=== PATIENT | female | born 1990 | race Caucasian/White ===

== ENCOUNTER 2021-05-12 01:46 | Emergency (ER) | payer SELFPAY ==
[2021-05-12 01:52] VITALS: BP 100/73; PULSE 99; RESP 17; TEMP 37.1; O2SAT 100
[2021-05-12 03:44] VITALS: BP 91/62; PULSE 77; RESP 18; TEMP 36.6; O2SAT 100
[2021-05-12 03:58] VITALS: BP 115/89
--- NOTE | 2021-05-12 04:00 | ED.GENADULT ---
HPI - General Adult General Chief complaint: Skin/Abscess/Foreign Body Stated complaint: i think i have MRSA Time Seen by Provider: 05/12/21 03:51 Source: RN notes reviewed History of Present Illness HPI narrative: Patient presents to emergency department from home for skin lesions. Patient states she has concerns of MRSA here with her significant other with same wounds on his body patient has several wounds in different stages of healing in her left leg bilateral arms and face states that the wound is well at time have purulent drainage she denies any fevers or chills or any other symptoms Related Data Allergies Allergy/AdvReac Type Severity Reaction Status Date / Time No Known Allergies Allergy Verified 05/12/21 03:50 Review of Systems Review of Systems: Gen.: Denies fevers or chills Musculoskeletal: Denies any joint pain : Denies chance of Neuro: Denies numbness, tingling, weakness Skin: See HPI Endo: Denies DM PMFSH Past Medical History Medical History (Updated 05/12/21 @ 04:03 by Hamzah Melendez DO) Patient denies significant medical history Family History Family History (Updated 05/11/14 @ 07:13 by DOCTOR UNKNOWN) Mother Family history of multiple sclerosis Social History Social History (Updated 05/12/21 @ 04:02 by Hamzah Melendez DO) Smoking status: Current every day smoker Alcohol intake: current Substance use type: marijuana Gender identity (if verbalized by the patient): Female Exam Narrative: APPEARANCE: No acute distress, nontoxic, resting in bed Eyes: EOMI HEENT: Normocephalic, atraumatic, RESPIRATORY: No respiratory distress MUSCULOSKELETAl: Moves all extremities. No clubbing cyanosis or edema NEURO: Awake and alert. Following commands, speech normal, no focal deficits SKIN:: Warm, dry. Normal patient with several circular erythematous lesions on the left leg and bilateral upper extremities and chin in different stages of healing with crusted over lesions consistent with healing abscesses there is no areas of fluctuance Course Course Emergency Course: Discussed with patient results of workup and diagnosis. Discussed need for follow-up with primary care, proper use of medication, and reasons to return to the emergency department. Patient understands and agrees to current treatment plan Vital Signs Vital signs: Vital Signs Temperature 98.8 F 05/12/21 01:52 Pulse Rate 99 05/12/21 01:52 Respiratory Rate 17 05/12/21 01:52 Blood Pressure 100/73 05/12/21 01:52 Pulse Oximetry 100 05/12/21 01:52 Temperature 97.9 F 05/12/21 03:44 Pulse Rate 77 05/12/21 03:44 Respiratory Rate 18 05/12/21 03:44 Blood Pressure 115/89 05/12/21 03:58 Pulse Oximetry 100 05/12/21 03:44 Medical Decision Making Vital Signs Vital Signs: Vital Signs Temperature 98.8 F 05/12/21 01:52 Pulse Rate 99 05/12/21 01:52 Respiratory Rate 17 05/12/21 01:52 Blood Pressure 100/73 05/12/21 01:52 Pulse Oximetry 100 05/12/21 01:52 Temperature 97.9 F 05/12/21 03:44 Pulse Rate 77 05/12/21 03:44 Respiratory Rate 18 05/12/21 03:44 Blood Pressure 115/89 05/12/21 03:58 Pulse Oximetry 100 05/12/21 03:44 Discharge Plan Discharge Clinical Impression: Cellulitis Patient Disposition: Home, Self-Care Condition: Stable Instructions: Antibiotic Form, Abscess (ED) Additional Instructions: Return for worsening signs of infection fever or any other symptoms of concern Prescriptions: New sulfamethoxazole-trimethoprim [Bactrim DS] 800-160 mg tablet 1 tablet PO Q12H Qty: 20 RF: 0 Follow-up/Referrals: Rainer Gordon MD [Physician] - (Follow-up in 1-2 days for further on-call physician treatment and evaluation) PHYSICIAN,TYPE PHOTOGRAPHY SUPERVISOR [Primary Care Provider] - Time of Disposition: 04:04
== END 2021-05-12 04:27 | disposition home or self-care (01) ==
LOC: ANHED 04:13
PROVIDERS: Emergency Provider Emergency Medicine
DX: L03.90 Cellulitis, unspecified (principal); F17.200 Nicotine dependence, unspecified, uncomplicated
CPT/HCPCS: 99283; A9270

== ENCOUNTER 2025-01-08 03:25 | Emergency (ER) | payer BC, SELFPAY ==
--- NOTE | ~2025-01-08 | XR_ITS ---
EXAMINATION: XR chest 1V portable DATE: 01/08/2025 07:35 INDICATION: Fevers TECHNIQUE: frontal view of the chest was obtained. COMPARISON: None FINDINGS: The lungs are clear with no focal airspace opacities, pulmonary edema, pleural effusion or pneumothor ax. The cardiomediastinal silhouette is normal. Visualized bones and soft tissues are unremarkable. IMPRESSION: 1. No acute cardiopulmonary disease. Reviewed, dictated and finalized at location A.
--- OUTSIDE RECORDS SUMMARY | 2025-01-08 03:28 | XMS_ITS | Patient Health Record ---
Author Organization Count includes the [facility] Address [address] [place] [address] Care Team Providers Care Traffic Engineer Name Role Phone Marvin Maritn Primary Care Provider [phone] Allergies Allergen (clinical drug ingredient) Drug/Non Drug Allergy documented on EMR Reaction Allergy Type Onset Date Status Bee Sting anaphylaxis Allergy Active Reason For Referral No Information Medications Medication SIG (Take, Route, Frequency, Duration) Notes Start Date End Date Status Venlafaxine HCl ER 37.5 MG 1 capsule wit h food Orally Once a day for 30 days Active Suboxone 8-2 MG 1 film under the ton kael and allow to dissolve Sublingual Once a day 12/31/2022 Active busPIRone HCl 7.5 MG 1 tablet Orally Twi ce a day for 30 days 01/27/2023 Active Social History Tobacco Use: Social History Observation Description Date Details (start date - stop date) Unknown Sex Assigned At : Social History Observation Description Sex Assigned At Female Dont use, Tobacco Use/Smoking Question Answer Notes Are you a Uses tobacco in other forms Additional Findings: Tobacco User e-Cigarette Problems Problem Type SNOMED Code ICD Code Onset Dates Problem Status W/U Status Risk Notes Problem Tobacco user (220886365) Nicotine dependence, unspecified, uncomplicated (F17.200) Active confirmed Problem Generalized anxiety disorder (79499346) Generalized anxiety disorder (F41.1) Active confirmed Problem Major depression (176622383) Major depression (F32.9) Active confirmed Problem Opioid use disorder (0386377314) Opioid use disorder (F11.90) Active confirmed Plan Of Treatment No Information Insurance Providers Payer Name Payer Address Payer Phone Subscriber Number Group Number Insured Name Patient Relationship to Insured Coverage Start Date Coverage End Date MEDICAID [address] [place] [address] [id number] Candis Braden Self - patient is the insured [address] [address] [id number] Candis Braden Self - patient is the insured 1 MEDICAID [facility] [address] [place] [address] [id number] Candis Braden Self - patient is the insured [address] [address] [id number] Candis Braden Self - patient is the insured 1 Medical (General) History Medical History History ICD Code anxiety attention deficit hyperactivity disorder OUD Surgical History Surgery Date(Month/Year) Hospitalization History Reason Date(Month/Year)
[2025-01-08 03:34] VITALS: BP 108/72; PULSE 137; RESP 14; TEMP 36.3; O2SAT 100
--- NOTE | 2025-01-08 03:56 | PC.NURSE ---
Pt presents to ED c/o dysuria, and elevated temp. Pt endorses taking opiods and xanax, unknown what time. Pt appears impaired upon being roomed. Pt placed in a gown and cont. cardiac monitoring.
[2025-01-08 06:33] LABS: BEDSIDEPREGUCG Negative (Negative)
[2025-01-08] MEDS: SODIUM CHLORIDE 0.9% IV 3,000 ML 999 ML IV CONT (06:33)
[2025-01-08] MEDS: KETOROLAC 15 MG/ML VIAL (*BKC) IV PUSH (06:34)
[2025-01-08 06:47] LABS: Basophils Absolute Auto 0.1 K/mm3 (0.0-0.1); Basophils Percent Auto 0.4 % (0.2-1.2); Eosinophils Absolute Auto 0.1 K/mm3 (0-0.3); Eosinophils Percent Auto 0.6 % (0-4.4); Hematocrit 31.5 % (37.0-47.0); Hemoglobin 10.2 g/dL (12.0-15.0); Immature Granulocyte Absolute 0.05 K/mm3 (0.00-0.031); Immature Granulocyte Percent A 0.4 % (0-0.5); Lymphocytes Absolute Auto 1.55 K/mm3 (0.9-3.2); Lymphocytes Percent Auto 12.7 % (18.3-44.2); Mean Corpuscular HGB Conc 32.4 g/dl (32-36); Mean Corpuscular Hemoglobin 29.1 pg (26-34); Mean Corpuscular Volume 89.7 fl (80-100); Mean Platelet Volume 9.4 fl (7.4-10.4); Monocytes Absolute Auto 1.1 K/mm3 (0.1-0.6); Monocytes Percent Auto 9.2 % (2.6-8.5); Neutrophils Absolute Auto 9.4 K/mm3 (1.3-6.7); Neutrophils Percent Auto 76.7 % (45.5-73.1); Platelet Count Result 510 k/mm3 (150-375); Red Blood Count 3.51 M/mm3 (4.2-5.4); Red Cell Distribution Width 11.6 % (11.5-14.5); White Blood Count 12.2 K/mm3 (4.5-10.0)
[2025-01-08 06:54] LABS: Add Urine Microscopic? YES; Appearance Urine Cloudy (Clear); Bacteria Urine 4+ /hpf; Bilirubin Urine Negative (Negative); Blood Urine Trace (Negative); Color Urine Yellow (Yellow); Glucose Urine UA Negative (Negative); Ketones Urine Negative (Negative); Leukocyte Esterase Ur 2+ LEU/UL (Negative); Nitrate Urine Negative (Negative); Non Pathogenic Casts 0-2; Protein Urine Trace mg/dL (Negative); RBC Urine 0-2 /hpf (0-2); Specific Grav Ur 1.012 (1.001-1.035); Squamous Epithelial Cell Urine Occasional /hpf (Few); Urobilinogen Urine 0.2 mg/dL (<2.0); WBC Urine 21-50 /hpf (0-3); pH Urine 5.5 (5.0-9.0)
[2025-01-08 07:00] LABS: Lactic Acid Reflex 1.9 mmol/L (0.7-2.0)
[2025-01-08 07:01] LABS: Ethanol < 10 mg/dL (<10)
[2025-01-08 07:11] LABS: Amphetamine Screen Urine Positive (Negative); Barbiturate Screen Urine Negative (Negative); Benzodiazepines Screen Urine Positive (Negative); Cannabinoid Screen Urine Positive (Negative); Cocaine Screen Urine Positive (Negative); Methadone Screen Urine Negative (Negative); Opiate Screen Urine Negative (Negative); Phencyclidine Screen Urine Negative (Negative)
--- NOTE | 2025-01-08 07:16 | ED_ITS ---
HPI - General Adult General Chief complaint: Fever <Basilio Myers MD - Last Filed: 01/08/25 07:29> Stated complaint: fever, UTI symptoms, L flank pain <Basilio Myers MD - Last Filed: 01/08/25 07:29> Time Seen by Provider: 01/08/25 05:33 <Basilio Myers MD - Last Filed: 01/08/25 07:29> History of Present Illness HPI narrative: This is a 34-year-old female presenting with chief complaint of fever. Patient says that she had UTI symptoms 2 weeks ago. She completed a course of Keflex but then they quickly returned. Now she is having fevers, headaches body aches left-sided flank pain and pain on urination. She denies vaginal discharge or irritation or concerns for STDs. She denies chest pain difficulty breathing nausea vomiting diarrhea. <Basilio Myers MD - Last Filed: 01/08/25 07:29> Related Data Allergies/adverse reactions: Allergies Allergy/AdvReac Type Severity Reaction Status Date / Time No Known Allergies Allergy Verified 01/08/25 03:38 <Basilio Myers MD - Last Filed: 01/08/25 07:29> [facility] Past Medical History Medical History: Medical History Patient denies significant medical history <Basilio Myers MD - Last Filed: 01/08/25 07:29> Family History Family History: Family History (Updated 05/11/14 @ 07:13 by DOCTOR UNKNOWN) Mother Family history of multiple sclerosis <Basilio Myers MD - Last Filed: 01/08/25 07:29> Social History Social History: Social History (Updated 05/12/21 @ 04:02 by Hamzah Melendez, DO) Smoking status: Current every day smoker Alcohol intake: current Substance use type: marijuana Gender identity (if verbalized by the patient): Female <Basilio Myers MD - Last Filed: 01/08/25 07:29> Exam 2 Narrative: APPEARANCE: No apparent distress. Head: atraumatic. EYES: EOMI, NOSE: Atraumatic NECK: Trachea midline RESPIRATORY: No increased rate of breathing CTAB CARDIOVASCULAR: Mildly tachycardic, no peripheral edema ABDOMINAL: Non-distended, soft nontender no guarding rebound left-sided flank pain MUSCULOSKELETAl: No obvious deformities NEURO: Alert. Moving 4/4 extremities SKIN:: Warm, dry. Normal color PSYCHIATRIC: Normal affect <Basilio Myers MD - Last Filed: 01/08/25 07:29> Course Reevaluation(s) Reevaluation #1: At time of discharge patient's Trichomonas gonorrhea and chlamydia was pending along with a chest x-ray. Patient was negative for gonorrhea Trichomonas and chlamydia and chest x-ray showed no acute cardiopulmonary abnormality. Patient is being treated for urinary tract infection being discharged home on cefdinir. <Cody Strong MD - Last Filed: 01/08/25 11:13> Vital Signs Vital signs: Vital Signs Temperature 97.4 F L 01/08/25 03:34 Pulse Rate 137 H 01/08/25 03:34 Respiratory Rate 14 01/08/25 03:34 Blood Pressure 108/72 01/08/25 03:34 Pulse Oximetry 100 01/08/25 03:34 Oxygen Delivery Room Air 01/08/25 03:34 Temperature 97.7 F 01/08/25 10:30 Pulse Rate 70 01/08/25 10:30 Respiratory Rate 18 01/08/25 10:30 Blood Pressure 110/60 01/08/25 10:30 Pulse Oximetry 98 01/08/25 10:30 Oxygen Delivery Room Air 01/08/25 03:34 <Basilio Myers MD - Last Filed: 01/08/25 07:29> Vital Signs Temperature 97.4 F L 01/08/25 03:34 Pulse Rate 137 H 01/08/25 03:34 Respiratory Rate 14 01/08/25 03:34 Blood Pressure 108/72 01/08/25 03:34 Pulse Oximetry 100 01/08/25 03:34 Oxygen Delivery Room Air 01/08/25 03:34 Temperature 97.7 F 01/08/25 10:30 Pulse Rate 70 01/08/25 10:30 Respiratory Rate 18 01/08/25 10:30 Blood Pressure 110/60 01/08/25 10:30 Pulse Oximetry 98 01/08/25 10:30 Oxygen Delivery Room Air 01/08/25 03:34 <Cody Strong MD - Last Filed: 01/08/25 11:13> Medical Decision Making MDM Narrative Medical decision making narrative: -Course: 34-year-old female presenting with fevers and urinary symptoms. Urine indicative infection. Patient given a 1 g of ceftriaxone IV. She will be prescribed 10 days of cefdinir. Patient signed out to the oncoming physician pending completion of her workup. <Basilio Myers MD - Last Filed: 01/08/25 07:29> Vital Signs Vital Signs: Vital Signs Temperature 97.4 F L 01/08/25 03:34 Pulse Rate 137 H 01/08/25 03:34 Respiratory Rate 14 01/08/25 03:34 Blood Pressure 108/72 01/08/25 03:34 Pulse Oximetry 100 01/08/25 03:34 Oxygen Delivery Room Air 01/08/25 03:34 Temperature 97.7 F 01/08/25 10:30 Pulse Rate 70 01/08/25 10:30 Respiratory Rate 18 01/08/25 10:30 Blood Pressure 110/60 01/08/25 10:30 Pulse Oximetry 98 01/08/25 10:30 Oxygen Delivery Room Air 01/08/25 03:34 <Basilio Myers MD - Last Filed: 01/08/25 07:29> Vital Signs Temperature 97.4 F L 01/08/25 03:34 Pulse Rate 137 H 01/08/25 03:34 Respiratory Rate 14 01/08/25 03:34 Blood Pressure 108/72 01/08/25 03:34 Pulse Oximetry 100 01/08/25 03:34 Oxygen Delivery Room Air 01/08/25 03:34 Temperature 97.7 F 01/08/25 10:30 Pulse Rate 70 01/08/25 10:30 Respiratory Rate 18 01/08/25 10:30 Blood Pressure 110/60 01/08/25 10:30 Pulse Oximetry 98 01/08/25 10:30 Oxygen Delivery Room Air 01/08/25 03:34 <Cody Strong MD - Last Filed: 01/08/25 11:13> Lab Data Result diagrams: 01/08/25 06:38 01/08/25 06:39 <Basilio Myers MD - Last Filed: 01/08/25 07:29> Labs: Lab Results 01/08/25 01/08/25 01/08/25 Range/Units 06:31 06:37 06:38 WBC 12.2 H (4.5-10.0) K/mm3 RBC 3.51 L (4.2-5.4) M/mm3 Hgb 10.2 L (12.0-15.0) g/dL Hct 31.5 L (37.0-47.0) % MCV 89.7 (80-100) fl MCH 29.1 (26-34) pg MCHC 32.4 (32-36) g/dl RDW 11.6 (11.5-14.5) % Plt Count 510 H (150-375) k/mm3 MPV 9.4 (7.4-10.4) fl Immature Gran % (Auto) 0.4 (0-0.5) % Neut % (Auto) 76.7 H (45.5-73.1) % Lymph % (Auto) 12.7 L (18.3-44.2) % [place] % (Auto) 9.2 H (2.6-8.5) % Eos % (Auto) 0.6 (0-4.4) % Baso % (Auto) 0.4 (0.2-1.2) % Lymph # (Auto) 1.55 (0.9-3.2) K/mm3 [place] # (Auto) 1.1 H (0.1-0.6) K/mm3 Eos # (Auto) 0.1 (0-0.3) K/mm3 Baso # (Auto) 0.1 (0.0-0.1) K/mm3 Abs Immat Gran (auto) 0.05 H (0.00-0.031) K/mm3 Absolute Neuts (auto) 9.4 H (1.3-6.7) K/mm3 Absolute Nucleated RBC 0.000 (0.0-0.012) K/mm3 Nucleated RBC % 0.0 (0.0-0.2) % Sodium (137-145) mmol/L Potassium (3.4-5.0) mmol/L Chloride (98-107) mmol/L Carbon Dioxide (22-30) mmol/L Anion Gap (4-12) mmol/L BUN (7-17) mg/dL Creatinine (0.7-1.0) mg/dL Estim Creat Clear Calc ml/min Estimated GFR (59 - ) Glucose (65-110) mg/dL Lactic Acid 1.9 (0.7-2.0) mmol/L Calcium (8.4-10.2) mg/dL Total Bilirubin (0.2-1.3) mg/dL AST (14-36) U/L ALT (6-35) U/L Alkaline Phosphatase (38-126) U/L Total Protein (6.3-8.2) g/dL Albumin (3.5-5.1) g/dL Urine Color (Yellow) Urine Appearance (Clear) Urine pH (5.0-9.0) Ur Specific [place] (1.001-1.035) Urine Protein (Negative) mg/dL Urine Glucose (UA) (Negative) mg/dL Urine Ketones (Negative) mg/dL Ur Blood (Man) (Negative) Urine Nitrate (Negative) Urine Bilirubin (Negative) Urine Urobilinogen (<2.0) mg/dL Leukocyte Esterase Rfl (Negative) PARIS/UL Urine RBC (0-2) /hpf Urine WBC (0-3) /hpf Ur Squamous Epith Cells (Few) /hpf Urine Bacteria /hpf Urine Casts POC Urine HCG, Qual Negative (Negative) Urine Opiates Screen (Negative) Urine Methadone Screen (Negative) Ur Barbiturates Screen (Negative) Ur Phencyclidine Scrn (Negative) Ur Amphetamine Screen (Negative) U Benzodiazepines Scrn (Negative) Urine Cocaine Screen (Negative) U Cannabinoids Screen (Negative) Ethyl Alcohol (<10) mg/dL C. trachomatis (PCR) Not detected (NOT DETECTE) Influenza A (RT-PCR) Negative (Negative) Influenza B (RT-PCR) Negative (Negative) N. gonorrhoeae (PCR) Not detected (NOT DETECTE) RSV (RT-PCR) Negative (Negative) SARS-CoV-2 RNA (RT-PCR) Negative (Negative) T. vaginalis (PCR) Not detected (NOT DETECTE) 01/08/25 01/08/25 Range/Units 06:39 06:40 WBC (4.5-10.0) K/mm3 RBC (4.2-5.4) M/mm3 Hgb (12.0-15.0) g/dL Hct (37.0-47.0) % MCV (80-100) fl MCH (26-34) pg MCHC (32-36) g/dl RDW (11.5-14.5) % Plt Count (150-375) k/mm3 MPV (7.4-10.4) fl Immature Gran % (Auto) (0-0.5) % Neut % (Auto) (45.5-73.1) % Lymph % (Auto) (18.3-44.2) % [place] % (Auto) (2.6-8.5) % Eos % (Auto) (0-4.4) % Baso % (Auto) (0.2-1.2) % Lymph # (Auto) (0.9-3.2) K/mm3 [place] # (Auto) (0.1-0.6) K/mm3 Eos # (Auto) (0-0.3) K/mm3 Baso # (Auto) (0.0-0.1) K/mm3 Abs Immat Gran (auto) (0.00-0.031) K/mm3 Absolute Neuts (auto) (1.3-6.7) K/mm3 Absolute Nucleated RBC (0.0-0.012) K/mm3 Nucleated RBC % (0.0-0.2) % Sodium 139 (137-145) mmol/L Potassium 2.8 L* (3.4-5.0) mmol/L Chloride 98 (98-107) mmol/L Carbon Dioxide 30 (22-30) mmol/L Anion Gap 11 (4-12) mmol/L BUN 30 H (7-17) mg/dL Creatinine 1.06 H (0.7-1.0) mg/dL Estim Creat Clear Calc 53 ml/min Estimated GFR 60 (59 - ) Glucose 72 (65-110) mg/dL Lactic Acid (0.7-2.0) mmol/L Calcium 9.0 (8.4-10.2) mg/dL Total Bilirubin 0.4 (0.2-1.3) mg/dL AST 36 (14-36) U/L ALT 24 (6-35) U/L Alkaline Phosphatase 149 H (38-126) U/L Total Protein 8.0 (6.3-8.2) g/dL Albumin 4.1 (3.5-5.1) g/dL Urine Color Yellow (Yellow) Urine Appearance Cloudy H (Clear) Urine pH 5.5 (5.0-9.0) Ur Specific [place] 1.012 (1.001-1.035) Urine Protein Trace (Negative) mg/dL Urine Glucose (UA) Negative (Negative) mg/dL Urine Ketones Negative (Negative) mg/dL Ur Blood (Man) Trace (Negative) Urine Nitrate Negative (Negative) Urine Bilirubin Negative (Negative) Urine Urobilinogen 0.2 (<2.0) mg/dL Leukocyte Esterase Rfl 2+ H (Negative) PARIS/UL Urine RBC 0-2 (0-2) /hpf Urine WBC 21-50 H (0-3) /hpf Ur Squamous Epith Cells Occasional (Few) /hpf Urine Bacteria 4+ H /hpf Urine Casts 0-2 POC Urine HCG, Qual (Negative) Urine Opiates Screen Negative (Negative) Urine Methadone Screen Negative (Negative) Ur Barbiturates Screen Negative (Negative) Ur Phencyclidine Scrn Negative (Negative) Ur Amphetamine Screen Positive A (Negative) U Benzodiazepines Scrn Positive A (Negative) Urine Cocaine Screen Positive A (Negative) U Cannabinoids Screen Positive A (Negative) Ethyl Alcohol < 10 (<10) mg/dL C. trachomatis (PCR) (NOT DETECTE) Influenza A (RT-PCR) Negative (Negative) Influenza B (RT-PCR) Negative (Negative) N. gonorrhoeae (PCR) (NOT DETECTE) RSV (RT-PCR) Negative (Negative) SARS-CoV-2 RNA (RT-PCR) Negative (Negative) T. vaginalis (PCR) (NOT DETECTE) <Basilio Myers MD - Last Filed: 01/08/25 07:29> Lab Results 01/08/25 01/08/25 01/08/25 Range/Units 06:31 06:37 06:38 WBC 12.2 H (4.5-10.0) K/mm3 RBC 3.51 L (4.2-5.4) M/mm3 Hgb 10.2 L (12.0-15.0) g/dL Hct 31.5 L (37.0-47.0) % MCV 89.7 (80-100) fl MCH 29.1 (26-34) pg MCHC 32.4 (32-36) g/dl RDW 11.6 (11.5-14.5) % Plt Count 510 H (150-375) k/mm3 MPV 9.4 (7.4-10.4) fl Immature Gran % (Auto) 0.4 (0-0.5) % Neut % (Auto) 76.7 H (45.5-73.1) % Lymph % (Auto) 12.7 L (18.3-44.2) % [place] % (Auto) 9.2 H (2.6-8.5) % Eos % (Auto) 0.6 (0-4.4) % Baso % (Auto) 0.4 (0.2-1.2) % Lymph # (Auto) 1.55 (0.9-3.2) K/mm3 [place] # (Auto) 1.1 H (0.1-0.6) K/mm3 Eos # (Auto) 0.1 (0-0.3) K/mm3 Baso # (Auto) 0.1 (0.0-0.1) K/mm3 Abs Immat Gran (auto) 0.05 H (0.00-0.031) K/mm3 Absolute Neuts (auto) 9.4 H (1.3-6.7) K/mm3 Absolute Nucleated RBC 0.000 (0.0-0.012) K/mm3 Nucleated RBC % 0.0 (0.0-0.2) % Sodium (137-145) mmol/L Potassium (3.4-5.0) mmol/L Chloride (98-107) mmol/L Carbon Dioxide (22-30) mmol/L Anion Gap (4-12) mmol/L BUN (7-17) mg/dL Creatinine (0.7-1.0) mg/dL Estim Creat Clear Calc ml/min Estimated GFR (59 - ) Glucose (65-110) mg/dL Lactic Acid 1.9 (0.7-2.0) mmol/L Calcium (8.4-10.2) mg/dL Total Bilirubin (0.2-1.3) mg/dL AST (14-36) U/L ALT (6-35) U/L Alkaline Phosphatase (38-126) U/L Total Protein (6.3-8.2) g/dL Albumin (3.5-5.1) g/dL Urine Color (Yellow) Urine Appearance (Clear) Urine pH (5.0-9.0) Ur Specific [place] (1.001-1.035) Urine Protein (Negative) mg/dL Urine Glucose (UA) (Negative) mg/dL Urine Ketones (Negative) mg/dL Ur Blood (Man) (Negative) Urine Nitrate (Negative) Urine Bilirubin (Negative) Urine Urobilinogen (<2.0) mg/dL Leukocyte Esterase Rfl (Negative) PARIS/UL Urine RBC (0-2) /hpf Urine WBC (0-3) /hpf Ur Squamous Epith Cells (Few) /hpf Urine Bacteria /hpf Urine Casts POC Urine HCG, Qual Negative (Negative) Urine Opiates Screen (Negative) Urine Methadone Screen (Negative) Ur Barbiturates Screen (Negative) Ur Phencyclidine Scrn (Negative) Ur Amphetamine Screen (Negative) U Benzodiazepines Scrn (Negative) Urine Cocaine Screen (Negative) U Cannabinoids Screen (Negative) Ethyl Alcohol (<10) mg/dL C. trachomatis (PCR) Not detected (NOT DETECTE) Influenza A (RT-PCR) Negative (Negative) Influenza B (RT-PCR) Negative (Negative) N. gonorrhoeae (PCR) Not detected (NOT DETECTE) RSV (RT-PCR) Negative (Negative) SARS-CoV-2 RNA (RT-PCR) Negative (Negative) T. vaginalis (PCR) Not detected (NOT DETECTE) 01/08/25 01/08/25 Range/Units 06:39 06:40 WBC (4.5-10.0) K/mm3 RBC (4.2-5.4) M/mm3 Hgb (12.0-15.0) g/dL Hct (37.0-47.0) % MCV (80-100) fl MCH (26-34) pg MCHC (32-36) g/dl RDW (11.5-14.5) % Plt Count (150-375) k/mm3 MPV (7.4-10.4) fl Immature Gran % (Auto) (0-0.5) % Neut % (Auto) (45.5-73.1) % Lymph % (Auto) (18.3-44.2) % [place] % (Auto) (2.6-8.5) % Eos % (Auto) (0-4.4) % Baso % (Auto) (0.2-1.2) % Lymph # (Auto) (0.9-3.2) K/mm3 [place] # (Auto) (0.1-0.6) K/mm3 Eos # (Auto) (0-0.3) K/mm3 Baso # (Auto) (0.0-0.1) K/mm3 Abs Immat Gran (auto) (0.00-0.031) K/mm3 Absolute Neuts (auto) (1.3-6.7) K/mm3 Absolute Nucleated RBC (0.0-0.012) K/mm3 Nucleated RBC % (0.0-0.2) % Sodium 139 (137-145) mmol/L Potassium 2.8 L* (3.4-5.0) mmol/L Chloride 98 (98-107) mmol/L Carbon Dioxide 30 (22-30) mmol/L Anion Gap 11 (4-12) mmol/L BUN 30 H (7-17) mg/dL Creatinine 1.06 H (0.7-1.0) mg/dL Estim Creat Clear Calc 53 ml/min Estimated GFR 60 (59 - ) Glucose 72 (65-110) mg/dL Lactic Acid (0.7-2.0) mmol/L Calcium 9.0 (8.4-10.2) mg/dL Total Bilirubin 0.4 (0.2-1.3) mg/dL AST 36 (14-36) U/L ALT 24 (6-35) U/L Alkaline Phosphatase 149 H (38-126) U/L Total Protein 8.0 (6.3-8.2) g/dL Albumin 4.1 (3.5-5.1) g/dL Urine Color Yellow (Yellow) Urine Appearance Cloudy H (Clear) Urine pH 5.5 (5.0-9.0) Ur Specific [place] 1.012 (1.001-1.035) Urine Protein Trace (Negative) mg/dL Urine Glucose (UA) Negative (Negative) mg/dL Urine Ketones Negative (Negative) mg/dL Ur Blood (Man) Trace (Negative) Urine Nitrate Negative (Negative) Urine Bilirubin Negative (Negative) Urine Urobilinogen 0.2 (<2.0) mg/dL Leukocyte Esterase Rfl 2+ H (Negative) PARIS/UL Urine RBC 0-2 (0-2) /hpf Urine WBC 21-50 H (0-3) /hpf Ur Squamous Epith Cells Occasional (Few) /hpf Urine Bacteria 4+ H /hpf Urine Casts 0-2 POC Urine HCG, Qual (Negative) Urine Opiates Screen Negative (Negative) Urine Methadone Screen Negative (Negative) Ur Barbiturates Screen Negative (Negative) Ur Phencyclidine Scrn Negative (Negative) Ur Amphetamine Screen Positive A (Negative) U Benzodiazepines Scrn Positive A (Negative) Urine Cocaine Screen Positive A (Negative) U Cannabinoids Screen Positive A (Negative) Ethyl Alcohol < 10 (<10) mg/dL C. trachomatis (PCR) (NOT DETECTE) Influenza A (RT-PCR) Negative (Negative) Influenza B (RT-PCR) Negative (Negative) N. gonorrhoeae (PCR) (NOT DETECTE) RSV (RT-PCR) Negative (Negative) SARS-CoV-2 RNA (RT-PCR) Negative (Negative) T. vaginalis (PCR) (NOT DETECTE) <Cody Strong MD - Last Filed: 01/08/25 11:13> Discharge Plan Discharge Clinical Impression: Pyelonephritis <Basilio Myers MD - Last Filed: 01/08/25 07:29> Patient Disposition: Home <Basilio Myers MD - Last Filed: 01/08/25 07:29> Condition: Stable <Basilio Myers MD - Last Filed: 01/08/25 07:29> Instructions: Antibiotic Form, Kidney Infection (ED) <Basilio Myers MD - Last Filed: 01/08/25 07:29> Additional Instructions: You seen in the emergency department for fevers. You have a kidney infection. Please take the cefdinir as instructed. Use Motrin Tylenol for headaches and body aches. If you develop any new or worsening symptoms please return to the ED immediately for re-evaluation. <Basilio Myers MD - Last Filed: 01/08/25 07:29> Patient Language: Jamaican <Basilio Myers MD - Last Filed: 01/08/25 07:29> Prescriptions: New cefdinir 300 mg capsule 300 mg PO Q12H 10 Days Qty: 20 0RF ibuprofen 800 mg tablet 800 mg PO TID PRN (Reason: pain) 7 Days Qty: 21 0RF acetaminophen 500 mg tablet 1,000 mg PO TID PRN (Reason: arnav) 7 Days Qty: 42 0RF No Action sulfamethoxazole-trimethoprim [Bactrim DS] 800-160 mg tablet 1 tablet PO Q12H Qty: 20 0RF <Basilio Myers MD - Last Filed: 01/08/25 07:29> Follow-up/Referrals: PHYSICIAN,AGGREGATE CONVEYOR OPERATOR [Primary Care Provider] - <Basilio Myers MD - Last Filed: 01/08/25 07:29>
[2025-01-08 07:22] LABS: Influenza A QL RT-PCR Negative (Negative); Influenza B QL RT-PCR Negative (Negative); RSV RNA, RT-PCR Negative (Negative); SARS-CoV-2 RNA PCR Negative (Negative)
[2025-01-08 07:29] VITALS: BP 125/64; PULSE 106; RESP 16; O2SAT 100
[2025-01-08 07:30] LABS: Influenza A QL RT-PCR Negative (Negative); Influenza B QL RT-PCR Negative (Negative); RSV RNA, RT-PCR Negative (Negative); SARS-CoV-2 RNA PCR Negative (Negative)
[2025-01-08 07:45] LABS: Alanine Aminotransferase 24 U/L (6-35); Albumin Level 4.1 g/dL (3.5-5.1); Alkaline Phosphatase 149 U/L (38-126); Anion Gap 11 mmol/L (4-12); Aspartate Amino Transferase 36 U/L (14-36); Bilirubin,Total 0.4 mg/dL (0.2-1.3); Blood Urea Nitrogen 30 mg/dL (7-17); Carbon Dioxide 30 mmol/L (22-30); Chloride 98 mmol/L (98-107); Estimated CRCL calculation 53 ml/min; Estimated Glomerular Filt Rate 60; Glucose 72 mg/dL (65-110); Potassium 2.8 mmol/L (3.4-5.0); Sodium 139 mmol/L (137-145)
[2025-01-08] MEDS: POTASSIUM CHLORIDE 20 MEQ PACKET (FOR LIQUID) 40 MEQ PO (08:15)
[2025-01-08 08:46] LABS: Trichomonas Vag PCR NOT DETECTED (NOT DETECTE)
[2025-01-08 09:08] LABS: Chlamydia trachomatis NOT DETECTED (NOT DETECTE); Neisseria gonorrhoeae PCR NOT DETECTED (NOT DETECTE)
[2025-01-08 10:30] VITALS: BP 110/60; PULSE 70; RESP 18; TEMP 36.5; O2SAT 98
== END 2025-01-08 10:33 | disposition home or self-care (01) ==
PROVIDERS: Emergency Provider Emergency Medicine
DX: N12 Tubulo-interstitial nephritis, not specified as acute or chronic (principal); Z20.822 Contact with and (suspected) exposure to COVID-19; F17.210 Nicotine dependence, cigarettes, uncomplicated
CPT/HCPCS: 36415; 71045; 80053; 80307; 81001; 81025; 82077; 83605; 85025; 87086; 87186; 87491; 87591; 87637; 87661; 96361; 96365; 96375; 99284; A9270; J0696; J1885; J7030